=== PATIENT | female | born 1990 | race African-American/Black ===

== ENCOUNTER 2018-07-04 06:15 | Inpatient (IN) ==
[2018-07-04] MEDS ORDERED: MEPERIDINE 50 MG/1 ML VIAL IV PRN (06:35)
[2018-07-04] MEDS ORDERED: ONDANSETRON 4 MG/2 ML VIAL IV PRN (06:35)
[2018-07-04] MEDS ORDERED: BUTORPHANOL 2 MG/ML VIAL IV PRN (06:35)
[2018-07-04 06:58] LABS: Basophils % 0.2 % (0.0-0.8); Eosinophils # 0.1 10*3/uL (0.0-0.87); Eosinophils % 0.8 % (0.00-10.9); Hematocrit 31.9 VOL% (35.7-47.0); Hemoglobin 9.5 GM/DL (12.0-16.0); Immature Granulocytes % 0.6 %; Immature Granulocytes Absolute 0.05 #; Lymphocytes # 1.9 10*3/uL (1.4-4.0); Lymphocytes % 23.2 % (21.3-54.2); Mean Corpuscular HGB Conc 29.8 GM/DL (32-36); Mean Corpuscular Hemoglobin 25 PG (27-34); Mean Corpuscular Volume 84.6 FL (87-102); Mean Platelet Volume 10.8 FL (9.6-12.0); Monocytes # 0.3 10*3/uL (0.11-0.8); Monocytes % 3.8 % (1.7-12.7); Neutrophils # 5.9 10*3/uL (1.4-7.4); Neutrophils % 71.4 % (38.7-73.9); Platelet Count 253 T/CUMM (130-400); Red Blood Count 3.77 MC/CUMM (3.8-5.5); Red Cell Distribution Width 18.2 % (9.3-17.3); White Blood Count 8.3 T/CUMM (4-12)
[2018-07-04] MEDS ORDERED: OXYTOCIN/LR 20 UNIT/1,000 ML BAG IV SCH (07:00)
[2018-07-04] MEDS: LACTATED RINGERS 1,000 ML IV SCH ×3 (07:47→14:54)
[2018-07-04] MEDS ORDERED: ePHEDrine 50 MG/ML AMP IV PRN (09:35)
[2018-07-04] MEDS ORDERED: CITRIC ACID/SODIUM CITRATE 30 ML UDCUP PO ONE (09:35)
[2018-07-04] MEDS ORDERED: FAMOTIDINE 20 MG/2 ML VIAL IV ONE (09:35)
[2018-07-04] MEDS ORDERED: PROMETHAZINE 25 MG/1 ML VIAL IM PRN (09:35)
[2018-07-04] MEDS ORDERED: NALOXONE 0.4 MG/ML VIAL IV PRN (09:35)
[2018-07-04] MEDS ORDERED: hydrOXYzine HCL 25 MG/1 ML VIAL IM PRN (09:35)
[2018-07-04] MEDS ORDERED: diphenhydrAMINE 50 MG/1 ML VIAL IV PRN (09:35)
[2018-07-04] MEDS ORDERED: fentaNYL 2 MCG/ROPIV 0.2% EPID 100 ML EPIDURAL SCH (10:00)
[2018-07-04 12:18] LABS: Apearance,Urine CLEAR (Clear); Bacteria,Urine Occasional /HPF (Few); Bilirubin,Urine Negative (Negative); Blood, Urine Negative (Negative); Glucose,Urine (UA) Negative (Negative); Ketones,Urine Negative (Negative); Mucus,Urine Occasional /LPF (Occasional); Nitrite,Urine Negative (Negative); Protein,Urine Negative; RBC,Urine 2 /HPF (0-4); Squamous Epithelial Cell,Urine Occasional /HPF (0-10); Urine Color Yellow (Yellow); Urine Specific Gravity 1.024 (1.001-1.035); WBC,Urine <1 /HPF (0-6)
[2018-07-04] MEDS ORDERED: TRANEXAMIC ACID 1,000 MG/10 ML VIAL ONE (15:38)
[2018-07-04] MEDS ORDERED: OXYTOCIN/LR 20 UNIT/1,000 ML BAG IV ONE ×2 (15:38→19:24)
[2018-07-04] MEDS ORDERED: miSOPROStol 200 MCG TABLET ONE (15:38)
[2018-07-04] MEDS ORDERED: CARBOPROST TROMETHAMINE 250 MCG/ML AMP IM ONE (15:39)
[2018-07-04] MEDS ORDERED: METHYLERGONOVINE 0.2 MG/1 ML AMP ONE (15:39)
[2018-07-04] MEDS ORDERED: ACETAMINOPHEN/CODEINE 300-30 MG TABLET PO PRN (18:52)
[2018-07-04] MEDS ORDERED: LANOLIN 50% CREAM 0.3 OZ TUBE TOP PRN (18:52)
[2018-07-04] MEDS ORDERED: RHO(D) IMMUNE GLOBULIN 300 MCG SYRINGE IM ONE (18:52)
[2018-07-04] MEDS ORDERED: WITCH HAZEL PADS 100/JAR TOP PRN (18:52)
[2018-07-04] MEDS ORDERED: HYDROCORTISONE 2.5% RECTAL CREAM 30 GM TUBE TOP PRN (18:52)
[2018-07-04] MEDS ORDERED: ACETAMINOPHEN 325 MG TABLET PO PRN (18:52)
[2018-07-04] MEDS ORDERED: BISACODYL 10 MG SUPP RECTAL PRN (18:52)
[2018-07-04] MEDS ORDERED: MEASLES/MUMPS/RUBELLA VACCINE 0.5 ML VIAL SUBCUT ONE (18:52)
[2018-07-04] MEDS ORDERED: oxyCODONE/ACETAMINOPHEN 5-325 MG TABLET PO PRN (18:52)
[2018-07-04] MEDS ORDERED: DIPH/TET/ACEL PERT BOOSTER VACCINE 0.5 ML VIAL IM ONE (18:52)
[2018-07-04] MEDS ORDERED: BENZOCAINE 20%/MENTHOL 0.5% SPRAY 56 GM CAN TOP PRN (18:52)
[2018-07-04] MEDS: oxyCODONE/ACETAMINOPHEN 5-325 MG TABLET PO PRN (19:13)
[2018-07-04] MEDS: IBUPROFEN 800 MG TABLET PO PRN (21:50)
[2018-07-04] MEDS: DOCUSATE SODIUM 100 MG CAPSULE PO SCH (21:51)
[2018-07-05] MEDS: oxyCODONE/ACETAMINOPHEN 5-325 MG TABLET PO PRN ×3 (00:53→23:24)
[2018-07-05] MEDS: IBUPROFEN 800 MG TABLET PO PRN ×2 (04:29→20:13)
[2018-07-05 07:40] LABS: Basophils % 0.3 % (0.0-0.8); Eosinophils # 0.2 10*3/uL (0.0-0.87); Eosinophils % 2.1 % (0.00-10.9); Hematocrit 28.3 VOL% (35.7-47.0); Hemoglobin 8.6 GM/DL (12.0-16.0); Immature Granulocytes % 0.9 %; Immature Granulocytes Absolute 0.07 #; Lymphocytes # 2.2 10*3/uL (1.4-4.0); Lymphocytes % 29.4 % (21.3-54.2); Mean Corpuscular HGB Conc 30.4 GM/DL (32-36); Mean Corpuscular Hemoglobin 25 PG (27-34); Mean Corpuscular Volume 83.7 FL (87-102); Mean Platelet Volume 10.3 FL (9.6-12.0); Monocytes # 0.4 10*3/uL (0.11-0.8); Monocytes % 5.4 % (1.7-12.7); Neutrophils # 4.7 10*3/uL (1.4-7.4); Neutrophils % 61.9 % (38.7-73.9); Platelet Count 214 T/CUMM (130-400); Red Blood Count 3.38 MC/CUMM (3.8-5.5); Red Cell Distribution Width 17.9 % (9.3-17.3); White Blood Count 7.6 T/CUMM (4-12)
[2018-07-05] MEDS: DOCUSATE SODIUM 100 MG CAPSULE PO SCH ×2 (08:16→21:12)
[2018-07-05] MEDS ORDERED: BENZOCAINE/MENTHOL LOZENGE 18/BOX PO PRN (20:04)
[2018-07-05] MEDS ORDERED: guaiFENesin/CODEINE 5 ML LIQUID PO PRN (20:05)
[2018-07-05] MEDS: FERROUS SULFATE 325 MG TABLET PO SCH (21:12)
[2018-07-06] MEDS ORDERED: ONDANSETRON 4 MG TABLET PO PRN (01:15)
[2018-07-06] MEDS: IBUPROFEN 800 MG TABLET PO PRN (02:56)
[2018-07-06 07:15] VITALS: BP 138/78
[2018-07-06] MEDS: FERROUS SULFATE 325 MG TABLET PO SCH (09:01)
[2018-07-06] MEDS: DOCUSATE SODIUM 100 MG CAPSULE PO SCH (09:01)
[2018-07-06] MEDS: oxyCODONE/ACETAMINOPHEN 5-325 MG TABLET PO PRN (12:42)
[2018-07-06] MEDS ORDERED: INFLUENZA VIRUS VACCINE 0.5 ML SYRINGE IM ONE (16:02)
== END 2018-07-06 16:10 | disposition home or self-care (01) | DRG 560 ==
LOC: N.LDOUT 06:15 → N.LD 06:17 → N.OB 21:43
PROVIDERS: ADMIT Obstetrics & Gynecology; ATTEND Obstetrics & Gynecology